=== PATIENT | female | born 2000 | race Asian ===

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

== ENCOUNTER 2020-01-02 09:24 | Emergency (ER) | payer OTHER ==
[~2020-01-02] VITALS: Ht 177.8 cm; Wt 94.8 kg
[2020-01-02 09:30] VITALS: TEMP 99.1
[2020-01-02 11:35] VITALS: BP 105/68
== END 2020-01-02 11:35 | disposition home or self-care (01) ==
LOC: ED 09:24
DX: Z3A.30 30 weeks gestation of pregnancy (principal); S00.11XA Contusion of right eyelid and periocular area, initial encounter; S05.11XA Contusion of eyeball and orbital tissues, right eye, initial encounter; Y04.2XXA Assault by strike against or bumped into by another person, initial encounter; Y92.89 Other specified places as the place of occurrence of the external cause
CPT/HCPCS: 99284

== ENCOUNTER 2020-05-19 10:45 | Emergency (ER) | payer OTHER ==
[~2020-05-19] VITALS: Ht 177.8 cm; Wt 94.8 kg
[2020-05-19 10:46] VITALS: BP 120/67; TEMP 97.9
== END 2020-05-19 12:22 | disposition home or self-care (01) ==
LOC: ED 10:45
DX: U07.1 COVID-19 (principal); J06.9 Acute upper respiratory infection, unspecified; G43.909 Migraine, unspecified, not intractable, without status migrainosus
CPT/HCPCS: 81000; 87635; 96372; 99283; J1885; J2405; U0003

== ENCOUNTER 2020-06-02 13:38 | Emergency (ER) | payer OTHER ==
[~2020-06-02] VITALS: Ht 177.8 cm; Wt 94.8 kg
[2020-06-02 13:48] VITALS: BP 121/70; TEMP 98
[2020-06-02 14:28] LABS: PLATELET COUNT 308 K/uL (152-353)
[2020-06-02 14:32] LABS: POTASSIUM 3.8 mmol/L (3.6-5.2)
== END 2020-06-02 15:04 | disposition home or self-care (01) ==
LOC: ED 13:38
PROVIDERS: Family Medicine
DX: G43.909 Migraine, unspecified, not intractable, without status migrainosus (principal)
CPT/HCPCS: 80053; 81000; 85027; 96372; 99283; J1885

== ENCOUNTER 2020-12-26 14:21 | Emergency (ER) | payer OTHER ==
[~2020-12-26] VITALS: Ht 177.8 cm; Wt 111.1 kg
[2020-12-26 14:25] VITALS: TEMP 98
[2020-12-26 14:54] VITALS: BP 122/79
== END 2020-12-26 14:57 | disposition home or self-care (01) ==
LOC: ED 14:21
DX: K08.89 Other specified disorders of teeth and supporting structures (principal)
CPT/HCPCS: 96372; 99282; J1885

== ENCOUNTER 2021-10-13 09:35 | Emergency (ER) | payer OTHER ==
[~2021-10-13] VITALS: Ht 177.8 cm; Wt 111.1 kg
[2021-10-13 09:40] VITALS: BP 120/87; TEMP 97.9
== END 2021-10-13 10:20 | disposition home or self-care (01) ==
LOC: ED 09:35
DX: K02.9 Dental caries, unspecified (principal)
CPT/HCPCS: 96372; 99282; J1885